=== PATIENT | female | born 1990 | race African-American/Black ===

== ENCOUNTER 2021-03-22 10:59 | Inpatient (IN) | payer BC, MEDICAID ==
[~2021-03-22] VITALS: Ht 154.9 cm; Wt 168.3 kg
[2021-03-22] MEDS ORDERED: ALBUTEROL (0.083%) 2.5MG/3ML NEB HHN STA (11:28)
[2021-03-22] MEDS ORDERED: ACETAMINOPHEN 325MG TABLET PO STA (11:28)
[2021-03-22] MEDS ORDERED: IPRATROPIUM BROMIDE (0.02%) 0.5MG/2.5ML NEB HHN STA (11:28)
[2021-03-22] MEDS ORDERED: LEVOFLOXACIN 500MG PREMIX 100 ML IV ONE (11:30)
[2021-03-22 11:52] LABS: CHLORIDE 98 mEq/L (98-107)
[2021-03-22 11:53] LABS: INR 1.1
[2021-03-22 12:05] LABS: HEMATOCRIT. 37.6 % (36.0-48.0); HEMOGLOBIN. 11.6 g/dL (12.0-16.0); MEAN CORPUSCULAR HEMOGLOBIN 23.7 pg (28.0-32.0); MEAN CORPUSCULAR VOLUME 76.9 fL (81.0-99.0); RED BLOOD CELL COUNT 4.89 mill/uL (4.2-5.4); RED CELL DISTRIBUTION WIDTH 20.7 % (11.6-14.6)
[2021-03-22 12:15] LABS: HCG SCREEN NEGATIVE
[2021-03-22 12:55] LABS: PLATELET 195 x1000/uL (130-400)
[2021-03-22 12:58] LABS: PLATELET ESTIMATE NORMAL
[2021-03-22 13:25] LABS: BG CARBOXYHEMOGLOBIN 0.1 % (0.5-1.5); BG DEOXYHEMOGLOBIN 5.6 % (0.0-5.0); BG FRACTION INSPIRED OXYGEN 36; BG HCO3 ACT 33.7 mmol/L (22.0-26.0); BG METHEMOGLOBIN 0.1 % (0.0-1.5); BG OXYGEN SATURATION 94.4 % (92.0-98.5); BG OXYHEMOGLOBIN 94.2 % (94.0-97.0); BG PCO2 52.2 mmHg (35.0-45.0); BG PH 7.428 (7.350-7.450); BG PO2 74.4 mmHg (75.0-100.0); BG SAMPLE SITE RIGHT RADIAL; BG TOTAL HEMOGLOBIN 12.2 g/dL (12.0-18.0); BG VENT MODE NASAL CANNULA
[2021-03-22] MEDS ORDERED: IPRATROPIUM/ALBUTEROL 0.5-3(2.5)MG/3ML NEB HHN PRN (14:30)
[2021-03-22] MEDS ORDERED: ACETAMINOPHEN 325MG TABLET PO PRN (15:45)
[2021-03-22] MEDS ORDERED: ONDANSETRON HCL 4MG/2ML INJ IV PRN (15:45)
[2021-03-22] MEDS ORDERED: POTASSIUM CHLORIDE 20MEQ TABLET SR PO NR (16:00)
[2021-03-22] MEDS: FUROSEMIDE 40MG/4ML VIAL IVP SCH (16:12)
[2021-03-22 16:40] VITALS: BP 116/62
[2021-03-22 16:59] VITALS: BP 116/62
[2021-03-22] MEDS: ENOXAPARIN 40MG/0.4ML SYR SUBCUT SCH (17:34)
[2021-03-22] MEDS ORDERED: METF-414 MT (17:49)
[2021-03-22 20:00] VITALS: BP 126/78
[2021-03-23] VITALS: BP 124/73
[2021-03-23 04:00] VITALS: BP 109/49
[2021-03-23] MEDS: ENOXAPARIN 40MG/0.4ML SYR SUBCUT SCH (05:00)
[2021-03-23 06:49] LABS: CHLORIDE 97 mEq/L (98-107)
[2021-03-23 08:00] VITALS: BP 151/94
[2021-03-23] MEDS ORDERED: POTASSIUM CHLORIDE 20MEQ TABLET SR PO SCH (09:00)
[2021-03-23] MEDS: FUROSEMIDE 40MG/4ML VIAL IVP SCH (10:09)
[2021-03-23] MEDS ORDERED: LEVOFLOXACIN 500MG PREMIX 100 ML IV SCH (11:00)
[2021-03-23 12:00] VITALS: BP 143/66
[2021-03-23] MEDS ORDERED: LEVO500T89 MT (12:02)
[2021-03-23] MEDS ORDERED: AMLODIPINE 5MG TABLET PO SCH (14:15)
[2021-03-23 15:53] VITALS: BP 143/64
[2021-03-23 17:03] VITALS: BP 143/64
[2021-03-23 22:00] LABS: BASOPHILS % 0.9 % (0.0-2.0); EOSINOPHILS % 0.6 % (0.0-5.0); HEMATOCRIT. 38.1 % (36.0-48.0); HEMOGLOBIN. 11.1 g/dL (12.0-16.0); LYMPHOCYTES % 11.5 % (20.0-50.0); MEAN CORPUSCULAR HEMOGLOBIN 23.4 pg (28.0-32.0); MEAN CORPUSCULAR VOLUME 80.4 fL (81.0-99.0); MEAN PLATELET VOLUME 8.9 fl (7.4-10.4); MONOCYTES % 8.2 % (2.0-8.0); NEUTROPHILS % 78.8 % (40.0-76.0); PLATELET 204 x1000/uL (130-400); RED BLOOD CELL COUNT 4.73 mill/uL (4.2-5.4); RED CELL DISTRIBUTION WIDTH 20.4 % (11.6-14.6)
[2021-03-23] MEDS ORDERED: SILDENAFIL CITRATE 20MG TABLET PO SCH (22:00)
[2021-03-24] MEDS ORDERED: REV20 MT (07:47)
[2021-03-24] MEDS ORDERED: LEVOFLOXACIN 500MG PREMIX 100 ML IV SCH (11:00)
== END 2021-03-23 17:45 | disposition home or self-care (01) | DRG 871 ==
LOC: ER 10:59 → 5EST 13:00 → EDBEDREQTM 13:04 → EDBEDREQ 13:04 → ENRESERV 15:08 → 7WST 16:40 → 5WST 21:15
PROVIDERS: ADMIT Internal Medicine; ATTEND Internal Medicine
DX: A41.9 Sepsis, unspecified organism (principal); J18.9 Pneumonia, unspecified organism; J96.21 Acute and chronic respiratory failure with hypoxia; E44.1 Mild protein-calorie malnutrition; Z68.45 Body mass index [BMI] 70 or greater, adult; E11.9 Type 2 diabetes mellitus without complications; E87.6 Hypokalemia; D64.9 Anemia, unspecified; E66.01 Morbid (severe) obesity due to excess calories; G47.33 Obstructive sleep apnea (adult) (pediatric); Z20.822 Contact with and (suspected) exposure to COVID-19; I36.1 Nonrheumatic tricuspid (valve) insufficiency; I27.20 Pulmonary hypertension, unspecified; Z86.16 Personal history of COVID-19
CPT/HCPCS: 36415; 36600; 71045; 80048; 80053; 80061; 82375; 82805; 82962; 83605; 83735; 83880; 84145; 84443; 84484; 84703; 85025; 87426; 93005; 93306; 99285; J1650; J1940; J1956